=== PATIENT | female | born 1950 | race Caucasian/White ===

== ENCOUNTER 2022-11-08 18:25 | Inpatient (IN) | payer MEDICARE, BC ==
[2022-11-08] MEDS ORDERED: SODIUM CHLORIDE 0.9% 500 ML 500 ML IV STA (18:44)
[2022-11-08] MEDS ORDERED: DILTIAZEM DRIP BOLUS FROM BAG 1 MG SOLN IV ONE (18:44)
[2022-11-08] MEDS ORDERED: HEPARIN SOD,PORK IN 0.45% NACL 25,000 UNIT in 0.45% NACL 1 250ML.BAG IV SCH (18:45)
[2022-11-08] MEDS ORDERED: DILTIAZEM 125 MG in SODIUM CHLORIDE 0.9% 100 ML IV SCH (18:45)
[2022-11-08] MEDS ORDERED: HEPARIN SODIUM 1,000 UN/ML (10ML VL) IV ONE (18:45)
--- NOTE | 2022-11-08 18:54 | ED ---
General Adult HPI - General Chief complaint: Arrhythmia/Palpitations Stated complaint: AFIB Time Seen by Provider: 11/08/22 18:35 Source: patient, RN notes reviewed, old records reviewed Mode of arrival: ambulatory Limitations: no limitations - History of Present Illness Initial comments: This is a 72-year-old female presents emergency Department with no previous history of atrial fibrillation. Patient comes in because she started having palpitations and being short of breath and once are primary medical care doctor. The doctor gave her Lasix metoprolol and eliquis but the patient continued to feel terrible at home so she came to the emergency department. Patient denies any chest pain but she does feel her heart racing. Patient denies any recent fever chills or cough per patient denies any swelling in her legs or calf tenderness. Patient denies any headache patient denies any numbness weakness. Patient denies any lightheadedness or dizziness. - Related Data Home Medications Medication Instructions Recorded Confirmed Apixaban [Eliquis] 5 mg PO BID 11/08/22 11/08/22 Aspirin EC [Ecotrin Low Dose] 81 mg PO DAILY 11/08/22 11/08/22 Celecoxib [CeleBREX] 100 mg PO BID PRN 11/08/22 11/08/22 Metoprolol Tartrate [Lopressor] 50 mg PO BID 11/08/22 11/08/22 Allergies Allergy/AdvReac Type Severity Reaction Status Date / Time naproxen [From Aleve] Allergy Nausea & Verified 11/08/22 19:03 Vomiting sulfamethoxazole Allergy Nausea & Verified 11/08/22 19:03 [From Bactrim] Vomiting trimethoprim [From Bactrim] Allergy Nausea & Verified 11/08/22 19:03 Vomiting Review of Systems ROS Statement: Those systems with pertinent positive or pertinent negative responses have been documented in the HPI. ROS Other: All systems not noted in ROS Statement are negative. Past Medical History Past Medical History: Atrial Fibrillation, Diabetes Mellitus, Hypertension History of Any Multi-Drug Resistant Organisms: None Reported Past Surgical History: No Surgical Hx Reported Past Psychological History: No Psychological Hx Reported Smoking Status: Current every day smoker, Never smoker Past Alcohol Use History: None Reported Past Drug Use History: None Reported General Exam - General Exam Comments Initial Comments: GENERAL: Patient is well-developed and well-nourished. Patient is nontoxic and well- hydrated and is mild distress. ENT: Neck is soft and supple. No significant lymphadenopathy is noted. Oropharynx is clear. Moist mucous membranes. Neck has full range of motion without eliciting any pain. EYES: The sclera were anicteric and conjunctiva were pink and moist. Extraocular movements were intact and pupils were equal round and reactive to light. Eyelids were unremarkable. PULMONARY: Unlabored respirations. Good breath sounds bilaterally. No audible rales rhonchi or wheezing was noted. CARDIOVASCULAR: There is a regular rate and rhythm without any murmurs gallops or rubs. ABDOMEN: Soft and nontender with normal bowel sounds. SKIN: Skin is clear with no lesions or rashes and otherwise unremarkable. NEUROLOGIC: Patient is alert and oriented x3. Cranial nerves II through XII are grossly intact. Motor and sensory are also intact. Normal speech, volume and content. Symmetrical smile. MUSCULOSKELETAL: Normal extremities with adequate strength and full range of motion. No lower extremity swelling or edema. No calf tenderness. LYMPHATICS: No significant lymphadenopathy is noted PSYCHIATRIC: Normal psychiatric evaluation. Limitations: no limitations Course Vital Signs 11/08/22 18:36 Temperature 98.5 F Pulse Rate 136 H Respiratory 22 Rate Blood Pressure 173/103 O2 Sat by Pulse 96 Oximetry Medical Decision Making - Medical Decision Making EKG shows atrial fibrillation with rapid ventricular response at 102 bpm QRS is 96 QT interval 314 QTC is 373 per patient's EKG shows no ST segment elevation or depression. Was pt. sent in by a medical professional or institution (LIAN Tee, TELEVISION NEWSCAST DIRECTOR, urgent care, hospital, or fci...) When possible be specific @ -Patient saw her primary medical care doctor today and he wanted to come to the emergency department Did you speak to anyone other than the patient for history (EMS, parent, family, police, friend...)? What history was obtained from this source @ -No Did you review nursing and triage notes (agree or disagree)? Why? @ -I reviewed and agree with nursing and triage notes Were old charts reviewed (outside hosp., previous admission, EMS record, old EKG, old radiological studies, urgent care reports/EKG's, fci records)? Report findings @ -I reviewed prior records on this patient prior lab work Differential Diagnosis (chest pain, altered mental status, abdominal pain women, abdominal pain men, vaginal bleeding, weakness, fever, dyspnea, syncope, headache, dizziness, GI bleed, back pain, seizure, CVA, palpatations, mental health, musculoskeletal)? @ -Differential Palpitations Ventricular arrhythmias, atrial arrhythmias, myocardial infarction, anemia, thyrotoxicosis, electrolyte imbalance, hypokalemia, pulmonary embolism, pulmonary disease, drugs, alcohol, anxiety, stress.... This is not meant to be an all-inclusive list. EKG interpreted by me (3pts min.). @ -As above X-rays interpreted by me (1pt min.). @ -Chest x-ray was interpreted by myself shows no acute abnormality CT interpreted by me (1pt min.). @ -None done U/S interpreted by me (1pt. min.). @ -None done What testing was considered but not performed or refused? (CT, X-rays, U/S, labs)? Why? @ -None What meds were considered but not given or refused? Why? @ -None Did you discuss the management of the patient with other professionals (heide calderon i.eJazzy Tee, PA, TELEVISION NEWSCAST DIRECTOR, lab, RT, psych nurse, social services assistant, sand plant attendant, teacher, tax compliance officer, pillowcase sewer)? Give summary @ [facility] Was smoking cessation discussed for >3mins.? @ -No Was critical care preformed (if so, how long)? @ -35 minutes Were there social determinants of health that impacted care today? How? (H omelessness, low income, unemployed, alcoholism, drug addiction, transportation, low edu. Level, literacy, decrease access to med. care, penitentiary, rehab)? @ -No Was there de-escalation of care discussed even if they declined (Discuss DNR or withdrawal of care, Hospice)? DNR status @ -No What co-morbidities impacted this encounter? (DM, HTN, Smoking, COPD, CAD, Cancer, CVA, ARF, Chemo, Hep., AIDS, mental health diagnosis, sleep apnea, morbid obesity)? @ -None Was patient admitted / discharged? Hospital course, mention meds given and route, prescriptions, significant lab abnormalities, going to OR and other pertinent info. @ -Patient was started on heparin because she only had one dose of eliquis in the morning. Patient also started on Cardizem because her heart was racing she was given an initial bolus and put on a drip. Labs came back within normal range. Except for the magnesium so I gave the patient 1 g of magnesium sulfate. Patient's heart rate came down nicely she is feeling better I spoke with his permission also said [facility] agreed to admit the patient admitted the patient wrote admit orders I consult cardiology Undiagnosed new problem with uncertain prognosis? @ -No Drug Therapy requiring intensive monitoring for toxicity (Heparin, Nitro, Insulin, Cardizem)? @ -No Were any procedures done? @ -No Diagnosis/symptom? @ -A. fib with rapid ventricular response Acute, or Chronic, or Acute on Chronic? @ -Acute Uncomplicated (without systemic symptoms) or Complicated (systemic symptoms)? @ -Complicated Side effects of treatment? @ -No Exacerbation, Progression, or Severe Exacerbation? @ -No Poses a threat to life or bodily function? How? (Chest pain, [place], [place], pneumonia, PE, COPD, DKA, ARF, appy, cholecystitis, CVA, Diverticulitis, Homicidal, Suicidal, threat to staff... and all critical care pts) @ -Yes this could lead to poor perfusion and end organ dysfunction - Lab Data Result diagrams: 11/08/22 18:44 11/08/22 18:44 Lab Results 11/08/22 11/08/22 11/08/22 Range/Units 18:44 18:44 18:44 WBC 6.4 (3.8-10.6) k/uL RBC 5.35 (3.80-5.40) m/uL Hgb 16.0 (11.4-16.0) gm/dL Hct 48.7 H (34.0-46.0) % MCV 91.1 (80.0-100.0) fL MCH 29.8 (25.0-35.0) pg MCHC 32.7 (31.0-37.0) g/dL RDW 14.5 (11.5-15.5) % Plt Count 231 (150-450) k/uL MPV 7.5 Neutrophils % 60 % Lymphocytes % 25 % Monocytes % 11 % Eosinophils % 2 % Basophils % 0 % Neutrophils # 3.9 (1.3-7.7) k/uL Lymphocytes # 1.6 (1.0-4.8) k/uL Monocytes # 0.7 (0-1.0) k/uL Eosinophils # 0.1 (0-0.7) k/uL Basophils # 0.0 (0-0.2) k/uL PT 11.7 (9.0-12.0) sec INR 1.1 (<1.2) APTT 27.3 (22.0-30.0) sec Sodium 138 (137-145) mmol/L Potassium 4.6 (3.5-5.1) mmol/L Chloride 101 (98-107) mmol/L Carbon Dioxide 28 (22-30) mmol/L Anion Gap 9 mmol/L BUN 13 (7-17) mg/dL Creatinine 0.64 (0.52-1.04) mg/dL Est GFR (CKD-EPI)AfAm >90 (>60 ml/min/1.73 sqM) Est GFR (CKD-EPI)NonAf 90 (>60 ml/min/1.73 sqM) Glucose 126 H (74-99) mg/dL Calcium 9.2 (8.4-10.2) mg/dL Magnesium 1.5 L (1.6-2.3) mg/dL Total Bilirubin 1.6 H (0.2-1.3) mg/dL AST 30 (14-36) U/L ALT 18 (4-34) U/L Alkaline Phosphatase 72 (38-126) U/L Troponin I (0.000-0.034) ng/mL Total Protein 7.5 (6.3-8.2) g/dL Albumin 3.9 (3.5-5.0) g/dL TSH 4.850 H (0.465-4.680) mIU/L 11/08/22 Range/Units 18:44 WBC (3.8-10.6) k/uL RBC (3.80-5.40) m/uL Hgb (11.4-16.0) gm/dL Hct (34.0-46.0) % MCV (80.0-100.0) fL MCH (25.0-35.0) pg MCHC (31.0-37.0) g/dL RDW (11.5-15.5) % Plt Count (150-450) k/uL MPV Neutrophils % % Lymphocytes % % Monocytes % % Eosinophils % % Basophils % % Neutrophils # (1.3-7.7) k/uL Lymphocytes # (1.0-4.8) k/uL Monocytes # (0-1.0) k/uL Eosinophils # (0-0.7) k/uL Basophils # (0-0.2) k/uL PT (9.0-12.0) sec INR (<1.2) APTT (22.0-30.0) sec Sodium (137-145) mmol/L Potassium (3.5-5.1) mmol/L Chloride (98-107) mmol/L Carbon Dioxide (22-30) mmol/L Anion Gap mmol/L BUN (7-17) mg/dL Creatinine (0.52-1.04) mg/dL Est GFR (CKD-EPI)AfAm (>60 ml/min/1.73 sqM) Est GFR (CKD-EPI)NonAf (>60 ml/min/1.73 sqM) Glucose (74-99) mg/dL Calcium (8.4-10.2) mg/dL Magnesium (1.6-2.3) mg/dL Total Bilirubin (0.2-1.3) mg/dL AST (14-36) U/L ALT (4-34) U/L Alkaline Phosphatase (38-126) U/L Troponin I 0.026 (0.000-0.034) ng/mL Total Protein (6.3-8.2) g/dL Albumin (3.5-5.0) g/dL TSH (0.465-4.680) mIU/L Critical Care Time Critical Care Time: Yes Total Critical Care Time: 35 Disposition Clinical Impression: Atrial fibrillation with rapid ventricular response, Hypomagnesemia Disposition: ADMITTED IP TO THIS HOSP Referrals: Denton Sosa DO [Primary Care Provider] - 1-2 days Time of Disposition: 20:36
[2022-11-08 19:40] LABS: Basophils % (A) 0 %; Eosinophils # (A) 0.1 k/uL (0-0.7); Eosinophils % (A) 2 %; HCT 48.7 % (34.0-46.0); Lymphocytes # (A) 1.6 k/uL (1.0-4.8); Lymphocytes % (A) 25 %; MCH 29.8 pg (25.0-35.0); MCHC 32.7 g/dL (31.0-37.0); MCV 91.1 fL (80.0-100.0); Mean Platelet Volume 7.5; Monocytes # (A) 0.7 k/uL (0-1.0); Monocytes % (A) 11 %; Neutrophils # (A) 3.9 k/uL (1.3-7.7); Neutrophils % (A) 60 %; Platelet Count 231 k/uL (150-450); RBC 5.35 m/uL (3.80-5.40); RDW 14.5 % (11.5-15.5); WBC 6.4 k/uL (3.8-10.6)
[2022-11-08 19:54] LABS: ALT 18 U/L (4-34); AST 30 U/L (14-36); African American GFR (CKD) >90 (>60 ml/min/1.73 sqM); Albumin 3.9 g/dL (3.5-5.0); Alkaline Phosphatase 72 U/L (38-126); Anion Gap 9 mmol/L; Blood Urea Nitrogen 13 mg/dL (7-17); Calcium 9.2 mg/dL (8.4-10.2); Carbon Dioxide 28 mmol/L (22-30); Chloride 101 mmol/L (98-107); Glucose 126 mg/dL (74-99); Magnesium 1.5 mg/dL (1.6-2.3); Non-African American GFR(CKD) 90 (>60 ml/min/1.73 sqM); Potassium 4.6 mmol/L (3.5-5.1); Sodium 138 mmol/L (137-145); Total Bilirubin 1.6 mg/dL (0.2-1.3); Total Protein 7.5 g/dL (6.3-8.2)
[2022-11-08 20:03] LABS: INR 1.1 (<1.2); Partial Thromboplastin Time 27.3 sec (22.0-30.0); Prothrombin Time 11.7 sec (9.0-12.0)
[2022-11-08] MEDS ORDERED: MAGNESIUM SULFATE-D5W PMX 1 GM in DEXTROSE/WATER 1 100ML.BAG IVPB ONE (20:19)
[2022-11-08] MEDS ORDERED: NITROGLYCERIN SL TABS 0.4 MG TAB SUBLINGUAL PRN (20:37)
--- NOTE | 2022-11-08 20:54 | XR ---
EXAMINATION TYPE: XR chest 2V DATE OF EXAM: 11/08/2022 COMPARISON: NONE HISTORY: Dysrhythmia. TECHNIQUE: Frontal and lateral views of the chest are obtained. FINDINGS: There is cardiomegaly with bilateral multifocal increased opacities and ectatic and athero sclerotic thoracic aorta. Suspect tiny bilateral pleural effusions The osseous structures are intac t. IMPRESSION: Possible CHF exacerbation. Areas of bilateral underlying acute infiltrate not excluded. Progress study advised.
[2022-11-08 22:00] LABS: Glucose,Whole Blood 134 mg/dL (70-110)
--- NOTE | 2022-11-09 08:59 | P.CRDCN ---
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 She has been feeling progressively fatigued, short of breath. She has palpitations but no syncope or chest discomfort. She had mild peripheral edema but no clear PND or orthopnea. She has no prior history of atrial fibrillation, CHF or ischemic heart disease. She has a history of hypertension and borderline diabetes mellitus. In the emergency room she was noted to be in atrial fibrillation with rapid ventricular response. Her troponin was normal and there was no acute ST segment changes. She was started on IV heparin and IV Cardizem Medications: Catapres, Celebrex, aspirin Review of Systems: Respiratory: She has dyspnea on exertion but no recent wheezing or cough GI: No nausea or vomiting . No history of peptic ulcer disease. No recent GI bleed. : No hematuria or dysuria. Nervous System: No stroke or seizure. Physical Examination: 72-year-old female, alert and oriented no apparent distress, obese,Blood pressure 121/69, Heart rate 73 Head: Normocephalic. Eyes: Sclerae nonicteric. Neck: Good carotid upstroke, no bruit, no jugular venous distention. Lungs: Clear to auscultation. Heart: Irregular rate and rhythm, S1-S2, no S3, no rub. Systolic ejection murmur. Abdomen: Soft nontender, positive bowel sounds no organomegaly. Extremities: Trace to 1+ edema, intact distal pulses. Labs: WBC 6.4, hemoglobin 16. Potassium 4.6. BUN 13, creatinine 0.64. Magnesium 1.5, troponin 0.026, 0.022. NT proBNP 1920, TSH 4.8, possible congestion EKG: Atrial fibrillation, heart rate of [address]-T wave changes Impression: 1. Atrial fibrillation appears to be new onset, probable 2 weeks at least. Her score is 3 2. History of hypertension 3. And borderline diabetes 4. Dyspnea is mild edema could be related to the atrial fibrillation with mild CHF, ejection fraction not available 5. History of arthritis Plan: 1. Stop IV Cardizem and IV heparin 2. Obtain an echocardiogram with Doppler 3. Start beta mary and oral anticoagulation 4. Start low dose diuretics probably for a short period of time 5. Depending on her response further recommendations will be made. Once she is anticoagulated and if she continues to be in atrial fibrillation and depending on her symptoms she may be a candidate for cardioversion. 6. I discussed those findings and recommendations with the patient, thank you for this consult we will follow with you. Past Medical History Past Medical History: Atrial Fibrillation, Diabetes Mellitus, Hypertension History of Any Multi-Drug Resistant Organisms: None Reported Past Surgical History: No Surgical Hx Reported Past Psychological History: No Psychological Hx Reported Smoking Status: Never smoker Past Alcohol Use History: None Reported Past Drug Use History: None Reported Medications and Allergies Home Medications Medication Instructions Recorded Confirmed Type Apixaban [Eliquis] 5 mg PO BID 11/08/22 11/08/22 History Aspirin EC [Ecotrin Low Dose] 81 mg PO DAILY 11/08/22 11/08/22 History Celecoxib [CeleBREX] 100 mg PO BID PRN 11/08/22 11/08/22 History Metoprolol Tartrate [Lopressor] 50 mg PO BID 11/08/22 11/08/22 History Allergies Allergy/AdvReac Type Severity Reaction Status Date / Time naproxen [From Aleve] Allergy Nausea & Verified 11/08/22 19:03 Vomiting sulfamethoxazole Allergy Nausea & Verified 11/08/22 19:03 [From Bactrim] Vomiting trimethoprim [From Bactrim] Allergy Nausea & Verified 11/08/22 19:03 Vomiting Physical Exam Vitals: Vital Signs Temp Pulse Pulse Resp BP BP Pulse Ox 11/09/22 04:45 97.8 F 73 14 121/69 96 11/08/22 23:40 97.5 F L 98 15 153/78 95 11/08/22 22:20 98.6 F 87 18 123/74 94 L 11/08/22 21:00 97.6 F 82 20 116/83 95 11/08/22 20:00 99 18 124/82 93 L 11/08/22 19:38 108 H 18 148/92 97 11/08/22 19:35 110 H 11/08/22 18:36 98.5 F 136 H 22 173/103 96 Intake and Output 11/08/22 11/09/22 11/09/22 22:59 06:59 14:59 Output Total 125 Balance -125 Output: Urine 125 Other: Voiding Method Toilet # Voids 1 Weight 113.398 kg 114.3 kg Results 11/08/22 18:44 11/08/22 18:44 Cardiac Enzymes 11/08/22 11/08/22 11/08/22 Range/Units 18:44 18:44 22:08 AST 30 (14-36) U/L Troponin I 0.026 0.022 (0.000-0.034) ng/mL 11/09/22 Range/Units 03:10 AST (14-36) U/L Troponin I 0.022 (0.000-0.034) ng/mL Coagulation 11/08/22 11/09/22 Range/Units 18:44 03:10 PT 11.7 (9.0-12.0) sec APTT 27.3 48.6 H (22.0-30.0) sec CBC 11/08/22 Range/Units 18:44 WBC 6.4 (3.8-10.6) k/uL RBC 5.35 (3.80-5.40) m/uL Hgb 16.0 (11.4-16.0) gm/dL Hct 48.7 H (34.0-46.0) % Plt Count 231 (150-450) k/uL Comprehensive Metabolic Panel 11/08/22 Range/Units 18:44 Sodium 138 (137-145) mmol/L Potassium 4.6 (3.5-5.1) mmol/L Chloride 101 (98-107) mmol/L Carbon Dioxide 28 (22-30) mmol/L BUN 13 (7-17) mg/dL Creatinine 0.64 (0.52-1.04) mg/dL Glucose 126 H (74-99) mg/dL Calcium 9.2 (8.4-10.2) mg/dL AST 30 (14-36) U/L ALT 18 (4-34) U/L Alkaline Phosphatase 72 (38-126) U/L Total Protein 7.5 (6.3-8.2) g/dL Albumin 3.9 (3.5-5.0) g/dL Current Medications Generic Name Dose Route Start Last Admin Trade Name Freq PRN Reason Stop Dose Admin Apixaban 5 mg 04/21/23 09:00 Apixaban 5 Mg Tab PO BID [facility] Protocol Metoprolol Tartrate 50 mg 11/09/22 09:00 Metoprolol Tartrate 50 Mg Tab PO BID [facility] Nitroglycerin 0.4 mg 11/08/22 20:37 Nitroglycerin Sl Tabs 0.4 Mg Tab SUBLINGUAL Q5M PRN Chest Pain Intake and Output 11/08/22 11/09/22 11/09/22 22:59 06:59 14:59 Output Total 125 Balance -125 Output: Urine 125 Other: Voiding Method Toilet # Voids 1 Weight 113.398 kg 114.3 kg 11/08/22 18:44 11/08/22 18:44
[2022-11-09] MEDS ORDERED: ASPIRIN 325 MG TAB PO SCH (09:00)
[2022-11-09] MEDS ORDERED: NON FORMULARY DRUG (Aspirin Ec 81 MG Tablet) PO SCH (09:00)
[2022-11-09] MEDS: FUROSEMIDE 20 MG TAB PO SCH (09:07)
[2022-11-09] MEDS: APIXABAN 5 MG TAB PO SCH ×2 (09:07→21:06)
[2022-11-09] MEDS: METOPROLOL TARTRATE 50 MG TAB PO SCH ×2 (09:08→21:06)
--- NOTE | 2022-11-09 09:08 | P.HPIM ---
History of Present Illness This is a pleasant 72 years old female with past medical history of atrial fibrillation on a blood thinner and hypertension on metoprolol Patient presents because of palpitation Patient says that she had a recent UTI now resolved and she denies any urinary symptoms. Patient denies chest pain dyspnea. No abdominal pain vomiting or diarrhea. No urgency or dysuria. No headache dizziness weakness or numbness She denies history of smoking Risk of Eliquis including but not limited to risk of bleeding are explained to the patient. Patient is aware. She used to be a nurse Hematocrit was 136 and 110 on admission, currently 101. Patient afebrile. She has unremarkable CBC, INR, BMP and liver enzymes. Troponin 3 are negative. ProBNP 1920. Magnesium 1.5. TSH is elevated at 4.8 Review of Systems Review of systems CONSTITUTIONAL: No fever, no malaise, no fatigue. HEENT: No recent visual problems or hearing problems. Denied any sore throat. CARDIOVASCULAR: No orthopnea, PND, no palpitations, no syncope. PULMONARY: No shortness of breath, no cough, no hemoptysis. GASTROINTESTINAL: No diarrhea, no nausea, no vomiting, no abdominal pain. Normoactive bowel sounds. NEUROLOGICAL: No headaches, no weakness, no numbness. HEMATOLOGICAL: Denies any bleeding or petechiae. GENITOURINARY: Denies any burning micturition, frequency, or urgency. MUSCULOSKELETAL/RHEUMATOLOGICAL: Denies any joint pain, swelling, or any muscle pain. ENDOCRINE: Denies any polyuria or polydipsia. Past Medical History Past Medical History: Atrial Fibrillation, Diabetes Mellitus, Hypertension History of Any Multi-Drug Resistant Organisms: None Reported Past Surgical History: No Surgical Hx Reported Past Psychological History: No Psychological Hx Reported Smoking Status: Never smoker Past Alcohol Use History: None Reported Past Drug Use History: None Reported Medications and Allergies Home Medications Medication Instructions Recorded Confirmed Type Apixaban [Eliquis] 5 mg PO BID 11/08/22 11/08/22 History Aspirin EC [Ecotrin Low Dose] 81 mg PO DAILY 11/08/22 11/08/22 History Celecoxib [CeleBREX] 100 mg PO BID PRN 11/08/22 11/08/22 History Metoprolol Tartrate [Lopressor] 50 mg PO BID 11/08/22 11/08/22 History Allergies Allergy/AdvReac Type Severity Reaction Status Date / Time naproxen [From Aleve] Allergy Nausea & Verified 11/08/22 19:03 Vomiting sulfamethoxazole Allergy Nausea & Verified 11/08/22 19:03 [From Bactrim] Vomiting trimethoprim [From Bactrim] Allergy Nausea & Verified 11/08/22 19:03 Vomiting Physical Exam Vitals: Vital Signs Temp Pulse Pulse Resp BP BP Pulse Ox 11/09/22 08:56 98.3 F 101 H 18 127/64 92 L 11/09/22 04:45 97.8 F 73 14 121/69 96 11/08/22 23:40 97.5 F L 98 15 153/78 95 11/08/22 22:20 98.6 F 87 18 123/74 94 L 11/08/22 21:00 97.6 F 82 20 116/83 95 11/08/22 20:00 99 18 124/82 93 L 11/08/22 19:38 108 H 18 148/92 97 11/08/22 19:35 110 H 11/08/22 18:36 98.5 F 136 H 22 173/103 96 Intake and Output 11/08/22 11/09/22 11/09/22 22:59 06:59 14:59 Output Total 125 Balance -125 Output: Urine 125 Other: Voiding Method Toilet # Voids 1 Weight 113.398 kg 114.3 kg GENERAL: The patient is alert and oriented x3, not in any acute distress. Well developed, well nourished. HEENT: Pupils are round and equally reacting to light. EOMI. No scleral icterus. No conjunctival pallor. Normocephalic, atraumatic. No pharyngeal erythema. No thyromegaly. CARDIOVASCULAR: S1 and S2 present. No murmurs, rubs, or gallops. PULMONARY: Chest is clear to auscultation, no wheezing or crackles. ABDOMEN: Soft, nontender, nondistended, normoactive bowel sounds. No palpable organomegaly. MUSCULOSKELETAL: No joint swelling or deformity. EXTREMITIES: No cyanosis, clubbing, or pedal edema. NEUROLOGICAL: Gross neurological examination did not reveal any focal deficits. SKIN: No rashes. no petechiae. Results CBC & Chem 7: 11/08/22 18:44 11/08/22 18:44 Labs: Abnormal Lab Results - Last 24 Hours (Table) 0411/08/22 11/08/22 Range/Units 18:44 18:44 21:58 Hct 48.7 H (34.0-46.0) % APTT (22.0-30.0) sec Glucose 126 H (74-99) mg/dL POC Glucose (mg/dL) 134 H (70-110) mg/dL Magnesium 1.5 L (1.6-2.3) mg/dL Total Bilirubin 1.6 H (0.2-1.3) mg/dL TSH 4.850 H (0.465-4.680) mIU/L 11/09/22 Range/Units 03:10 Hct (34.0-46.0) % APTT 48.6 H (22.0-30.0) sec Glucose (74-99) mg/dL POC Glucose (mg/dL) (70-110) mg/dL Magnesium (1.6-2.3) mg/dL Total Bilirubin (0.2-1.3) mg/dL TSH (0.465-4.680) mIU/L Thrombosis Risk Factor Assmnt - Choose All That Apply Any of the Below Risk Factors Present?: Yes Each Factor Represents 1 point: Obesity (BMI >25), Swollen legs (current) Other Risk Factors: Yes Each Risk Factor Represents 2 Points: Age 61-74 years Other congenital or acquired thrombophilia - If yes, enter type in comment: No Thrombosis Risk Factor Assessment Total Risk Factor Score: 4 Thrombosis Risk Factor Assessment Level: Moderate Risk Assessment and Plan Assessment: Paroxysmal atrial fibrillation with RVR Hypertension Abnormal TSH Plan: Continue with metoprolol Continue with oral Eliquis Cardiology consult Check TSH and T4 tomorrow Labs and medication were reviewed.. Continue same treatment. Continue with symptomatic treatment. Resume home medication. Monitor labs and vitals. DVT and GI prophylaxis. Further recommendations as per clinical course of the patient DVT prophylaxis: Eliquis GI prophylaxis: Pepcid PT/OT: Pending Prognosis is guarded
[2022-11-09 09:56] LABS: LDL Cholesterol,Calculated 89.9 mg/dL (0.0-131.0)
[2022-11-09] MEDS ORDERED: POTASSIUM CHLORIDE ER 20 MEQ TAB.ER PO STA (12:47)
[2022-11-09] MEDS ORDERED: Potassium Replacement Protocol 1 EACH MISC MISCELLANE PRN (12:48)
--- NOTE | 2022-11-09 19:07 | CA ---
Transthoracic Echo Report Name: Amparo Fofana Age: 72 Gender: F : 1950 Exam Date: 11/09/2022 10:12 Exam Location: [facility] Ht (in): 61 Wt (lb): 251 Ordering Physician: Jean Lin MD ([id number]) Attending/Referring Phys: Occupational Hygienist Yasmin Fall RDCS Procedure CPT: Indications: afib Cardiac Hx: Technical Quality: Technically difficult study Contrast 1: Lumason Total Dose (mL): 4 Contrast 2: Total Dose (mL): MEASUREMENTS (Male / Female) Normal Values 2D ECHO LV Diastolic Diameter PLAX 4.2 cm 4.2 - 5.9 / 3.9 - 5.3 cm LV Systolic Diameter PLAX 3.1 cm IVS Diastolic Thickness 1.7 cm 0.6 - 1.0 / 0.6 - 0.9 cm LVPW Diastolic Thickness 1.2 cm 0.6 - 1.0 / 0.6 - 0.9 cm LV Relative Wall Thickness 0.7 LA Volume 132.3 cm??? 18 - 58 / 22 - 52 cm??? M-MODE Aortic Root Diameter MM 2.4 cm LA Systolic Diameter MM 5.2 cm LA Ao Ratio MM 2.1 DOPPLER AV Peak Velocity 121.5 cm/s AV Peak Gradient 5.9 mmHg AV Mean Velocity 101.4 cm/s AV Mean Gradient 4.3 mmHg AV Velocity Time Integral 27.0 cm AI Peak Velocity 374.3 cm/s AI Peak Gradient 56.0 mmHg AI Pressure Half Time 508.1 ms LVOT Peak Velocity 90.4 cm/s LVOT Peak Gradient 3.3 mmHg LVOT Velocity Time Integral 18.3 cm MV E' Velocity 7.6 cm/s TR Peak Velocity 273.4 cm/s TR Peak Gradient 29.9 mmHg Right Ventricular Systolic Press 33.7 mmHg FINDINGS Left Ventricle Moderately increased left ventricular wall thickness. Reduced global left ventricular systolic function. Left ventricular ejection fraction is estimated at 40-45 %. Right Ventricle Right ventricle not well visualized. Right ventricular systolic pressure within normal limits. Right Atrium Normal right atrial size. Left Atrium Severely increased left atrial volume. Moderately increased left atrial area. Mitral Valve Structurally normal mitral valve. [id number]-[id number] mitral regurgitation. Aortic Valve No aortic stenosis. Mild aortic regurgitation. Tricuspid Valve [id number] tricuspid regurgitation. Pulmonic Valve Structurally normal pulmonic valve. Pericardium No pericardial effusion. Aorta Normal size aortic root and proximal ascending aorta. CONCLUSIONS Increase every muscle but reduced LV systolic function Severe left atrial enlargement Previewed by: Dr. Bienvenido Hernandez MD (Electronically Signed) Final Date: 09 November 2022 19:06
[2022-11-10 07:51] VITALS: TEMP 97.3
[2022-11-10 08:36] VITALS: RESP 18
[2022-11-10] MEDS: APIXABAN 5 MG TAB PO SCH (08:37)
[2022-11-10] MEDS: METOPROLOL TARTRATE 50 MG TAB PO SCH (08:37)
[2022-11-10] MEDS: FUROSEMIDE 20 MG TAB PO SCH (08:37)
[2022-11-10 08:42] LABS: T4, Free (Free Thyroxine) 2.09 ng/dL (0.78-2.19)
--- NOTE | 2022-11-10 11:10 | P.PN ---
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 She has been feeling progressively fatigued, short of breath. She has palpitations but no syncope or chest discomfort. She had mild peripheral edema but no clear PND or orthopnea. She has no prior history of atrial fibrillation, CHF or ischemic heart disease. She has a history of hypertension and borderline diabetes mellitus. In the emergency room she was noted to be in atrial fibrillation with rapid ventricular response. Her troponin was normal and there was no acute ST segment changes. She was started on IV heparin and IV Cardizem November 10: The patient presented with atrial fibrillation, she feels better today. She d enies any chest discomfort. She continues to be in atrial fibrillation was controlled ventricular response. Anticoagulation was initiated yesterday. She denies any dizziness. She underwent an echocardiogram that showed an ejection fraction of 40-45% with moderate- severe mitral regurgitation. Medications: Lasix 20 mg daily, metoprolol 50 mg twice a day,Eliquis 5 mg twice a day PHYSICAL EXAMINATION: Blood pressure 142/60 heart rate 82 LUNGS: Clear to auscultation HEART: Irregular rate and rhythm, S1, S2. No S3. Holosystolic murmur ABDOMEN: Soft, nontender, no organomegaly EXTREMETIES: No edema LAB: LDL 89, free T4 2.09 IMPRESSION: 1. Atrial fibrillation, appears to be new onset 2. Moderate cardiomyopathy with moderate to severe mitral regurgitation of unknown duration 3. Hypertension 4. Symptoms of dyspnea improving PLAN: 1. Add lisinopril 2. Increase physical activity 3. If stable discharged home today and follow-up as an outpatient 4. If she continues to be in atrial fibrillation consider cardioversion and subsequent workup for the mitral regurgitation. 5. The findings and recommendations discussed with the patient and she is in agreement. Objective - Vital Signs Vital signs: Vital Signs Temp 97.3 F L 11/10/22 04:43 Pulse 102 H 11/10/22 08:35 Resp 18 11/10/22 08:35 BP 142/63 11/10/22 08:35 Pulse Ox 94 L 04/22/23 08:35 FiO2 Intake & Output 11/09/22 11/10/22 11/10/22 18:59 06:59 18:59 Intake Total 448.078 0431 128 Balance 126.091 5606 128 Intake: IV 20 10 10 Invasive Line 1 10 Invasive Line 2 10 10 10 Intake, IV Titration 203.667 Amount Diltiazem 125 mg In 68.5 Sodium Chloride 0.9% 100 ml @ 5 MG/HR 5 mls/hr IV .Q24H TRICE Rx#:[id number] Heparin Sod,Pork in 0.45% 135.167 NaCl 25,000 unit In 0.45 % NaCl 1 250ml.bag @ 8. 8183 UNITS/KG/HR 10 mls/ hr IV .Q24H TRICE Rx#: [id number] Oral 1080 118 Other: Voiding Method Toilet Toilet Toilet # Bowel Movements 1 - Labs CBC & Chem 7: 11/08/22 18:44 11/08/22 18:44 Labs: Abnormal Lab Results - Last 24 Hours (Table) 11/08/22 Range/Units 18:44 Hemoglobin A1c 6.9 H (0.0-6.0) %
[2022-11-10] MEDS ORDERED: lisinopriL 5 MG TAB PO SCH (11:15)
[2022-11-10 11:52] VITALS: BP 125/73; PULSE 66
[2022-11-10] MEDS ORDERED: FAMOTIDINE 20 MG/2 ML VIAL IV SCH (21:00)
[2022-11-10] MEDS ORDERED: MAGNESIUM OXIDE 400 MG TAB PO SCH (21:00)
--- NOTE | 2022-11-13 07:01 | P.DS ---
Providers Date of admission: 11/08/22 20:39 Attending physician: Debi Brewer Consults: 11/08/22 20:38 Consult Physician Urgent Consulting Provider: [facility] Consult Reason/Comments: A. fib with rapid ventricular response Do you want consulting provider notified?: Yes Primary care physician: Denton Sosa [facility] Course: Hospital course: Diagnoses: Paroxysmal atrial fibrillation with RVR Diabetes mellitus with hemoglobin A1c 6.9%, patient informed does not want to start diabetic medication and she wants to talk to her PCP first Hypertension Abnormal TSH, that there are TSH is elevated at 4.8. Recheck TSH and T4 are normal Hospital course This is a pleasant 72 years old female with past medical history of atrial fibrillation on a blood thinner and hypertension on metoprolol Patient presents because of palpitation Patient says that she had a recent UTI now resolved and she denies any urinary symptoms. Patient denies chest pain dyspnea. No abdominal pain vomiting or diarrhea. No urgency or dysuria. No headache dizziness weakness or numbness She denies history of smoking Risk of Eliquis including but not limited to risk of bleeding are explained to the patient. Patient is aware. She used to be a nurse Patient tolerated by rn oncology, she has continued on metoprolol on Eliquis, she was started on lisinopril and LASIX (chest x-ray showed pulmonary congestion On the day of discharge she became asymptomatic. She denies chest pain or dyspnea, no change in urine or bowel habits. No fever. Patient is eager to go home today. Has been at bedside I discussed the case with cardiology team and Dr. Lin Patient confirms to me that she has Eliquis at home, I offered to give her prescription for Eliquis but she declines stating that she has 3 months supply. Problems and management plan were discussed with the patient and he verbalized understanding and acceptance Patient was found stable and can be discharged home in guarded prognosis however he needs follow-up as an outpatient. Patient was instructed to follow up with PCP Dr. Sosa within one week and patient agrees Patient was instructed to follow up with her rn oncology Dr. Lin in one week and she agrees with the appointments made for her on 11/17 stated she would follow up Physical exam Gen: patient is a AAOx3, no distress CVS: S1-S2, RRR, no murmur Lungs: B/L CTA, no wheezing Abdomen: soft, no distention, no tenderness, positive bowel sounds Extremity: no leg edema or induration Time spent more than 35 minutes Plan - Discharge Summary Discharge Rx Participant: No New Discharge Prescriptions: New lisinopriL [Zestril] 5 mg PO DAILY #30 tab Furosemide [Lasix] 20 mg PO DAILY #30 tab Magnesium Oxide [Mag-Ox] 400 mg PO BID 5 Days #10 tab Ondansetron [Zofran] 4 mg PO Q8HR PRN 5 Days #20 tab PRN Reason: Nausea And Vomiting Continue Celecoxib [CeleBREX] 100 mg PO BID PRN PRN Reason: Pain Aspirin EC [Ecotrin Low Dose] 81 mg PO DAILY Apixaban [Eliquis] 5 mg PO BID Metoprolol Tartrate [Lopressor] 50 mg PO BID Discharge Medication List Apixaban [Eliquis] 5 mg PO BID 11/08/22 [History] Aspirin EC [Ecotrin Low Dose] 81 mg PO DAILY 11/08/22 [History] Celecoxib [CeleBREX] 100 mg PO BID PRN 11/08/22 [History] Metoprolol Tartrate [Lopressor] 50 mg PO BID 11/08/22 [History] Furosemide [Lasix] 20 mg PO DAILY #30 tab 11/10/22 [Rx] Magnesium Oxide [Mag-Ox] 400 mg PO BID 5 Days #10 tab 11/10/22 [Rx] lisinopriL [Zestril] 5 mg PO DAILY #30 tab 11/10/22 [Rx] Ondansetron [Zofran] 4 mg PO Q8HR PRN 5 Days #20 tab 11/11/22 [Rx] Follow up Appointment(s)/Referral(s): Jean Lin MD [STAFF PHYSICIAN] - 11/17/22 10:00 am Denton Sosa DO [Primary Care Provider] - 1-2 days (Please call Saturday to schedule follow up appoitment) Patient Instructions/Handouts: A-fib (Atrial Fibrillation) (IP) Activity/Diet/Wound Care/Special Instructions: Heart healthy diet , low carbohydrate diet activity as tolerated until you see your doctor Discharge Disposition: HOME SELF-CARE
== END 2022-11-10 12:10 | disposition home or self-care (01) | DRG 310 ==
LOC: EC 18:25 → 3SCARD 20:39
PROVIDERS: ADMIT Hospitalist; ATTEND Hospitalist
DX: I48.0 Paroxysmal atrial fibrillation (principal); E83.42 Hypomagnesemia; F17.200 Nicotine dependence, unspecified, uncomplicated; I10 Essential (primary) hypertension; I34.0 Nonrheumatic mitral (valve) insufficiency; I42.9 Cardiomyopathy, unspecified; Z79.01 Long term (current) use of anticoagulants; Z79.1 Long term (current) use of non-steroidal anti-inflammatories (NSAID); Z79.82 Long term (current) use of aspirin; Z79.899 Other long term (current) drug therapy
CPT/HCPCS: 36415; 71046; 80053; 80061; 83036; 83735; 83880; 84436; 84439; 84443; 84484; 85025; 85610; 85730; 93005; 93306; 96365; 96366; 96368; 96375; 99291

== ENCOUNTER 2023-01-08 06:19 | Day surgery (SDC) | payer MEDICARE, BC ==
[~2023-01-08 06:19] MED LIST: LACTATED RINGERS 1,000 ML IV SCH
[2023-01-08 07:05] LABS: Glucose,Whole Blood 109 mg/dL (70-110)
[2023-01-08 07:07] VITALS: TEMP 97.4
[2023-01-08] MEDS ORDERED: LACTATED RINGERS 1,000 ML IV ONE (07:09)
[2023-01-08] MEDS ORDERED: PROPOFOL 10 MG/ML 20 ML VIAL IV ONE (07:09)
[2023-01-08] MEDS ORDERED: LIDOCAINE 2% INJ 20 MG/ML (2 ML VIAL) ONE (07:09)
[2023-01-08 07:20] LABS: Potassium 4.1 mmol/L (3.5-5.1)
[2023-01-08] MEDS ORDERED: BENZOCAINE SPRAY 1 CAN TOPICAL ONE (07:21)
[2023-01-08] MEDS ORDERED: ONDANSETRON 4 MG TAB PO PRN (07:35)
--- NOTE | 2023-01-08 07:39 | P.PCN ---
Date of Procedure: 01/08/23 Description of Procedure: Indication: Atrial fibrillation Procedure Description: After explaining the procedure to the patient, it's risk and complications, blood pressure, heart rate and O2 saturation were monitored. The throat was sprayed with Cetacaine. Patient received sedation per anesthesia department. The probe was introduced into the esophagus without difficulty. Images were obtained. Following that, the probe was removed. There was no immediate complication. Findings: Left atrial size is dilated, severe spontaneous contrast was noted. Left atrial appendage revealed a thrombus measuring 0.7 x 0.9 cm. Left ventricle systolic function is moderately impaired. Ejection fraction 40-45%. The aortic valve and the mitral valve appears to be normal. No pericardial effusion was noted. Descending thoracic aorta shows mild atherosclerotic changes with spontaneous contrast. Contrast bubble study revealed no shunting across the intra-atrial septum. Doppler: Pulse wave and color Doppler were obtained, revealed moderate mitral, aortic and tricuspid regurgitation. No shunting by color Doppler study Conclusion: 1. Dilated left atrium with severe spontaneous contrast 2. Left atrial appendage thrombus, appears to be smaller compared to the study done in November 3. Moderate global hypokinesis of the left ventricle 4. Moderate mitral, aortic and tricuspid regurgitation 5. Mild atherosclerotic changes of the descending thoracic aorta
[2023-01-08] MEDS ORDERED: SODIUM CHLORIDE 0.9% 1,000 ML IV SCH (07:45)
[2023-01-08 08:28] VITALS: RESP 16
[2023-01-08 08:33] VITALS: BP 154/85; PULSE 107
[2023-01-08] MEDS ORDERED: SPIRONOLACTONE 25 MG TAB PO SCH (09:00)
[2023-01-08] MEDS ORDERED: lisinopriL 5 MG TAB PO SCH (09:00)
[2023-01-08] MEDS ORDERED: METOPROLOL TARTRATE 50 MG TAB PO SCH (09:00)
[2023-01-08] MEDS ORDERED: FUROSEMIDE 20 MG TAB PO SCH (09:00)
[2023-01-08] MEDS ORDERED: APIXABAN 5 MG TAB PO SCH (09:00)
== END 2023-01-08 08:50 | disposition home or self-care (01) ==
LOC: OR 06:19
PROVIDERS: ATTEND Internal Medicine Interventional Cardiology
DX: I48.21 Permanent atrial fibrillation (principal); I08.3 Combined rheumatic disorders of mitral, aortic and tricuspid valves; I70.0 Atherosclerosis of aorta; I74.8 Embolism and thrombosis of other arteries; I42.8 Other cardiomyopathies; I10 Essential (primary) hypertension; E11.9 Type 2 diabetes mellitus without complications; E07.9 Disorder of thyroid, unspecified; F17.210 Nicotine dependence, cigarettes, uncomplicated; M19.90 Unspecified osteoarthritis, unspecified site; Z79.01 Long term (current) use of anticoagulants; Z79.899 Other long term (current) drug therapy; Z88.2 Allergy status to sulfonamides; Z88.6 Allergy status to analgesic agent
CPT/HCPCS: 93312; 93320; 93325; 80051; J2704; J2001

== ENCOUNTER 2023-04-02 05:55 | Day surgery (SDC) | payer MEDICARE, BC ==
[2023-04-02] MEDS ORDERED: LACTATED RINGERS 1,000 ML IV ONE (06:38)
[2023-04-02 07:11] LABS: African American GFR (CKD) 82 (>60 ml/min/1.73 sqM); Anion Gap 10 mmol/L; Blood Urea Nitrogen 23 mg/dL (7-17); Calcium 9.2 mg/dL (8.4-10.2); Carbon Dioxide 23 mmol/L (22-30); Chloride 104 mmol/L (98-107); Glucose 105 mg/dL (74-99); Non-African American GFR(CKD) 71 (>60 ml/min/1.73 sqM); Sodium 137 mmol/L (137-145)
[2023-04-02 07:12] LABS: Potassium 4.8 mmol/L (3.5-5.1)
[2023-04-02] MEDS ORDERED: PROPOFOL 10 MG/ML 20 ML VIAL IV ONE (07:15)
[2023-04-02] MEDS ORDERED: LIDOCAINE 2% INJ 20 MG/ML (2 ML VIAL) ONE (07:15)
[2023-04-02] MEDS ORDERED: BENZOCAINE SPRAY 1 CAN TOPICAL ONE (07:25)
[2023-04-02] MEDS ORDERED: FUROSEMIDE 20 MG TAB PO PRN (07:41)
[2023-04-02] MEDS ORDERED: SODIUM CHLORIDE 0.9% 1,000 ML IV SCH (07:45)
[2023-04-02 07:46] VITALS: TEMP 97
--- NOTE | 2023-04-02 07:46 | P.PCN ---
Date of Procedure: 04/02/23 Description of Procedure: Indication: Atrial fibrillation Procedure Description: After explaining the procedure to the patient, it's risk and complications, blood pressure, heart rate and O2 saturation were monitored. The throat was sprayed with Cetacaine. Patient received sedation per anesthesia department. The probe was introduced into the esophagus without difficulty. Images were obtained. Following that, the probe was removed. There was no immediate complication. Findings: Left atrial size is dilated, left atrial appendage showed a small thrombus, much smaller compared to the prior study and appears to be organized. The ventricle systolic function revealed mild global hypokinesis, ejection fraction 40-45%. The aortic valve revealed fibrocalcific changes of the aortic cusps was preserved opening. Mild thickening of the mitral valve leaflets was noted. Tricuspid valve is normal. Descending thoracic aorta. No significant atherosclerotic changes. Contrast bubble study revealed no shunting across the interatrial septum. Doppler: Pulse wave and color Doppler were obtained, an revealed moderate mitral, aortic and tricuspid regurgitation there was no shunting by color Doppler study Conclusion: 1. Dilated left atrium with small thrombus, appears to be organized and much smaller compared to the prior study 2. Moderate global hypokinesis 3. Moderate mitral, aortic and tricuspid regurgitation 4. No shunting across the intra-atrial septum 5. No pericardial effusion Cardioversion: After obtaining AARON and sedated state synchronized biphasic cardioversion using 150 J was performed with congregation of sinus mechanism, there was no immediate complications.
[2023-04-02 08:52] VITALS: BP 121/60; RESP 15
[2023-04-02] MEDS ORDERED: LOSARTAN 25 MG TAB PO SCH (09:00)
[2023-04-02] MEDS ORDERED: SPIRONOLACTONE 25 MG TAB PO SCH (09:00)
[2023-04-02] MEDS ORDERED: METOPROLOL TARTRATE 50 MG TAB PO SCH (09:00)
[2023-04-02 09:15] VITALS: PULSE 69
[2023-04-02] MEDS ORDERED: RIVAROXABAN 20 MG TAB PO SCH (17:00)
== END 2023-04-02 09:15 | disposition home or self-care (01) ==
LOC: OR 05:55
PROVIDERS: ATTEND Internal Medicine Interventional Cardiology
DX: I08.3 Combined rheumatic disorders of mitral, aortic and tricuspid valves (principal); I48.11 Longstanding persistent atrial fibrillation; I42.8 Other cardiomyopathies; E11.9 Type 2 diabetes mellitus without complications; I10 Essential (primary) hypertension; Z88.6 Allergy status to analgesic agent; Z88.2 Allergy status to sulfonamides; Z88.1 Allergy status to other antibiotic agents; Z79.01 Long term (current) use of anticoagulants; Z79.899 Other long term (current) drug therapy
CPT/HCPCS: 93312; 93320; 93325; 92960; 80048; J2704; J2001

== ENCOUNTER → 2024-02-25 | Outpatient (CLI) | payer MEDICARE, BC | END | disposition home or self-care (01) | LOC: LABPRL 11:00 | PROVIDERS: ATTEND Family Medicine | DX: Z00.00 Encounter for general adult medical examination without abnormal findings | CPT/HCPCS: 80053; 80061; 82306; 83036; 84439; 84443; 85025 ==